=== PATIENT | male | born 1930 | race Caucasian/White ===

== ENCOUNTER 2017-11-20 07:21 | Day surgery (SDC) | payer BC, MEDICARE ==
--- NOTE | 2017-11-17 10:16 | HP ---
DATE OF SURGERY: 11/20/2017 ADMISSION DIAGNOSIS: Cyst on the back. ANTICIPATED PROCEDURE: Incision. HISTORY OF PRESENT ILLNESS: The patient has had about four or five cysts on the back requiring incision and possible packing of some of these. PAST MEDICAL HISTORY: ALLERGIES: NONE. MEDICATIONS: Multiple. PAST SURGICAL HISTORY: Hemorrhoids. SOCIAL HISTORY: Negative. FAMILY HISTORY: Negative. REVIEW OF SYSTEMS: Diabetes. PHYSICAL EXAMINATION: VITAL SIGNS: Normal. CHEST: Clear. COR: Regular. IMPRESSION: Cysts on the back. PLAN: Incision.
[2017-11-20] MEDS ORDERED: CEFAZOLIN 2 GM-D5W BAG** 2 GM/50 ML ML IV ONE (07:22)
[2017-11-20] MEDS ORDERED: TORAdol 30 mg Injection IV ONE (07:22)
[2017-11-20] MEDS ORDERED: Versed 2 MG/2 ML Injection IV ONE (07:22)
[2017-11-20] MEDS ORDERED: Ketamine HCl 50 MG/ML IV ONE (07:22)
[2017-11-20] MEDS ORDERED: Decadron 4 MG INJ IV ONE (07:22)
[2017-11-20] MEDS ORDERED: DIPRIVAN 200 MG/20 ML IV ONE (07:22)
[2017-11-20] MEDS ORDERED: XYLOCAINE 1% HCL 20 ML MDV ONE ×2 (08:32→15:08)
[2017-11-20] MEDS ORDERED: Sodium Chloride 0.9% 1000 ML 1,000 ML ONE (08:32)
[2017-11-20] MEDS ORDERED: Lactated Ringers 1,000 ML IV SCH (09:00)
[2017-11-20] MEDS ORDERED: Lactated Ringers 1,000 ML IV ONE (09:10)
[2017-11-20 10:08] LABS: ANION GAP 16.7 MEQ/L (5-15); BLOOD UREA NITROGEN 23 mg/dL (9-20); CHLORIDE 106 mmol/L (98-107); Calcium 9.6 mg/dL (8.4-10.2); Carbon Dioxide 25 mmol/L (22-30); Creatinine 1 1.17 mg/dL (0.66-1.25); Glucose 90 mg/dL (74-106); SODIUM 143 mmol/L (137-145)
[2017-11-20] MEDS ORDERED: SUBLIMAZE 100 MCG/2 ML ONE (16:08)
[2017-11-20 16:59] VITALS: O2SAT 98
[2017-11-20 17:27] VITALS: BP 147/76; PULSE 72
--- NOTE | 2017-11-21 07:35 | OP ---
SURGERY DATE/TIME: 11/20/2017 1505 PREOPERATIVE DIAGNOSIS: Multiple sebaceous cysts of the back POSTOPERATIVE DIAGNOSIS: Five sebaceous cysts 4 cm, 2 cm, 2 cm, 1 cm, 1 cm. PROCEDURE: Excision and packing of all five of these. SURGEON: Dennis Sena M.D. ANESTHESIA: General. COMPLICATIONS: None. CONDITION: Stable. INDICATION: A patient with multiple, inflamed, enlarging sebaceous cysts of the back. DESCRIPTION OF PROCEDURE: Taken to surgery. Five were elliptically excised including all the shell and the material and they were of the above sizes. Hemostasis obtained with electrocautery. They were packed with Iodoform. The patient tolerated the procedure satisfactorily.
== END 2017-11-20 07:40 | disposition home or self-care (01) ==
LOC: SDC 07:21
PROVIDERS: ATTEND Surgery
DX: L72.3 Sebaceous cyst (principal)
CPT/HCPCS: 36415; 80048; 82962; 99100; J0690; J1100; J1885; J2250; J2704; J3010

== ENCOUNTER 2020-12-07 09:18 | Day surgery (SDC) | payer MEDICARE ==
--- NOTE | 2020-12-01 13:08 | HP ---
AMENDED REPORT: DATE OF SURGERY: 12/07/2020 HISTORY OF PRESENT ILLNESS: The patient presents with two cysts on the upper back. They have been there for some time. A little inflamed. PAST MEDICAL HISTORY: Hypertension. Gout. Diabetes. Hypertension. Hyperlipidemia. Iron deficiency anemia, benign prostatic hypertrophy, atrial fibrillation. PAST SURGICAL HISTORY: Hemorrhoidectomy. Kidney stone. ALLERGIES: NKDA. MEDICATIONS: Metoprolol, potassium, Coumadin, allopurinol, amlodipine, calcium, vitamin D, Trulicity, iron, steroid, Lasix, glipizide, hydralazine, Lantus, lisinopril, multivitamin, Pravastatin, Tamsulosin. FAMILY HISTORY: None reported. SOCIAL HISTORY: None reported. REVIEW OF SYSTEMS: CONSTITUTIONAL: Denies fever or chills. CHEST: Denies shortness of breath. CVS: Denies chest pain. ABDOMEN: Denies abdominal pain. PHYSICAL EXAMINATION: GENERAL: No acute distress. CHEST: Nonlabored. No shortness of breath. CVS: Regular rate and rhythm. ABDOMEN: Soft, nontender to palpation. INTEGUMENTARY: Two cysts on the upper back. NEUROLOGIC: Alert. PSYCHIATRIC: Appropriate. IMPRESSION: Two upper back cysts. PLAN: Incision of two upper back cysts with possible open treatment with Dr. Dennis Sena. As dictated by Dilma Gonzalez NP.
[~2020-12-07 09:18] MED LIST: Lactated Ringers 1,000 ML IV SCH
[2020-12-07] MEDS ORDERED: VERSED 5 MG/5 ML IV ONE (09:19)
[2020-12-07] MEDS ORDERED: DEMEROL 50 MG IJ ONE (09:19)
[2020-12-07] MEDS ORDERED: Lactated Ringers 1,000 ML IV ONE (10:47)
[2020-12-07] MEDS ORDERED: XYLOCAINE 1% HCL 20 ML MDV ONE ×2 (11:30→12:03)
[2020-12-07 13:16] VITALS: O2SAT 100
[2020-12-07 13:24] VITALS: BP 152/63; PULSE 66
--- NOTE | 2020-12-08 11:45 | OP ---
SURGERY DATE/TIME: 12/07/2020 1140 PREOPERATIVE DIAGNOSIS: Sebaceous cyst x2 on the back 2 cm each. POSTOPERATIVE DIAGNOSIS: Sebaceous cyst x2 on the back 2 cm each. PROCEDURE: Excision with packing only no closure of two separate 2 cm sebaceous cysts to the upper back. SURGEON: Dennis Sena M.D. ANESTHESIA: Local IV sedation 15 minutes monitored. COMPLICATIONS: None. CONDITION: Stable. INDICATION: The patient has two infected sebaceous cysts. DESCRIPTION OF PROCEDURE: Taken to surgery. Left lateral decubitus position. IV sedation was monitored of Versed and Demerol. Oximetry was kept over 90%. Local 1% lidocaine. These were both elliptically excised and packed. Hemostasis satisfactory. They were totally removed. No sutures were placed. The patient tolerated the procedure satisfactorily.
== END 2020-12-07 13:33 | disposition home or self-care (01) ==
LOC: SDC 09:18
PROVIDERS: ATTEND Surgery
DX: L72.0 Epidermal cyst (principal); I10 Essential (primary) hypertension; E11.9 Type 2 diabetes mellitus without complications; E78.5 Hyperlipidemia, unspecified; Z79.899 Other long term (current) drug therapy
CPT/HCPCS: 82947; J2175; J2250